=== PATIENT | female | born 1995 ===

== ENCOUNTER 2023-06-18 19:37 | Emergency (ER) | payer OTHER ==
[2023-06-18 19:49] VITALS: BP 112/78; PULSE 92; RESP 20; TEMP 98.2; BMI 28.8
[2023-06-18] MEDS ORDERED: ACETAMINOPHEN 500 MG TABLET (FP) PO ONE (20:37)
[2023-06-18] MEDS ORDERED: ONDANSETRON *ODT* 4 MG TABLET SL ONE (20:37)
[2023-06-18] MEDS ORDERED: ACETAMINOPHEN 325 MG TABLET (FP) ONE (20:46)
[2023-06-18] MEDS ORDERED: ONDANSETRON *ODT* 4 MG TABLET ONE (20:46)
== END 2023-06-18 23:21 | disposition home or self-care (01) ==
LOC: JER 19:37
DX: S09.90XA Unspecified injury of head, initial encounter (principal); R11.2 Nausea with vomiting, unspecified; W01.198A Fall on same level from slipping, tripping and stumbling with subsequent striking against other object, initial encounter; R51.9 Headache, unspecified; R42 Dizziness and giddiness
CPT/HCPCS: 70450-TC; 99284-25; Q0162